=== PATIENT | male | born 1990 ===

== ENCOUNTER 2024-09-25 17:10 | Emergency (ER) | payer SELFPAY ==
[2024-09-25 17:16] VITALS: BP 142/85; PULSE 80; RESP 18; TEMP 36.8; O2SAT 95
[2024-09-25 19:55] VITALS: BP 149/88; PULSE 73; RESP 18; O2SAT 98
== END 2024-09-25 21:19 | disposition left against medical advice (07) ==
LOC: ANHED 21:37
DX: S05.91XA Unspecified injury of right eye and orbit, initial encounter (principal)
CPT/HCPCS: 99199